=== PATIENT | female | born 1960 | race Caucasian/White ===

== ENCOUNTER 2020-05-09 15:32 | Emergency (ER) | payer BC ==
[~2020-05-09] VITALS: Ht 167.6 cm; Wt 111.1 kg
[2020-05-09 17:04] LABS: ABSOLUTE NEUTROPHILS 16.4 thou/uL (1.4-8.2); BASOPHILS 0.5 % (0.0-2.0); EOSINOPHILS 0.7 % (0.0-3.0); HEMATOCRIT 46.9 % (37.0-47.0); HEMOGLOBIN 16.2 gm/dL (12.0-15.0); LYMPHOCYTES 10.6 % (24.0-44.0); MCH 32.1 pg (26.0-34.0); MCHC 34.6 g/dL (28.0-37.0); MCV 92.9 fL (80.0-100.0); MONOCYTES 4.1 % (1.0-8.0); PLATELET COUNT 509 thou/uL (150-400); POLYS 84.1 % (36.0-66.0); RBC 5.05 mil/uL (4.20-5.00); RDW 13.6 % (10.5-14.5); WBC 19.6 thou/uL (4.0-11.0)
[2020-05-09 17:08] LABS: ANION GAP 11 mmol/L (7-16); BUN 18 mg/dL (7-18); CALCIUM 9.4 mg/dL (8.5-10.1); CHLORIDE 101 mmol/L (98-107); CO2 25 mmol/L (21-32); CREATININE 1.7 mg/dL (0.6-1.0); GLUCOSE 204 mg/dL (74-106); POTASSIUM 3.8 mmol/L (3.5-5.1); SODIUM 137 mmol/L (136-145)
[2020-05-09 17:25] LABS: ALBUMIN 3.9 g/dL (3.4-5.0); DIRECT BILIRUBIN < 0.1 mg/dL (<0.1-0.2); SGOT 20 U/L (15-37); SGPT 34 U/L (30-65); TOTAL BILIRUBIN 0.5 mg/dL (0.2-1.0); TOTAL PROTEIN 7.4 g/dL (6.4-8.2)
[2020-05-09 18:09] LABS: URINE BILIRUBIN NEGATIVE (Negative); URINE BLOOD TRACE (Negative); URINE CLARITY CLEAR; URINE COLOR YELLOW; URINE GLUCOSE-RANDOM* NEGATIVE (Negative); URINE KETONES NEGATIVE (Negative); URINE LEUKOCYTES-REFLEX NEGATIVE (Negative); URINE NITRITE-REFLEX NEGATIVE (Negative); URINE PROTEIN (DIPSTICK) TRACE (Negative); URINE SPECIFIC GRAVITY 1.025 (1.005-1.035); URINE UROBILINOGEN 0.2 E.U./dl (0.2-1.0)
[2020-05-09 21:10] VITALS: BP 122/74
--- NOTE | 2020-05-10 09:23 | EKG ---
[facility] [place] [address] ELECTROCARDIOGRAM REPORT Name: MARYANN SHELTON Room [id number] Admission: 05/09/20 Attend Phys: Discharge: 05/09/20 Date of : 64 Report #: [id number] THIS REPORT FOR: cc: Fernando Issa Damon DO Santiago, Patrick MD [facility] ~ THIS REPORT FOR: //name// [facility] ED Test Date: 2020-05-09 Test Time: 16:18:54 Pat Name: MARYANN SHELTON Department: Room: Gender: F [employer]iting Coordinator: Roosevelt DING : 1960 Requested By: Cindy Tanner Order Number: [id number] MD: Robert Wood Measurements Intervals [place] Rate: 84 P: 41 TN: 187 QRS: -27 QRSD: 85 T: 60 QT: 393 QTc: 465 Interpretive Statements Sinus rhythm Probable left atrial enlargement Borderline left axis deviation Abnormal R-wave progression, late transition No previous ECG available for comparison Electronically Signed On 05-10-2020 9:23:21 CDT by Robert Wood [email or web address] <ELECTRONICALLY SIGNED> By: Robert Wood MD, FACC 05/10/20 0923 1618 Robert Wood MD, FACC /EPI
== END 2020-05-09 21:10 | disposition home or self-care (01) ==
LOC: ER 15:32
PROVIDERS: Emergency Medicine
DX: R18.8 Other ascites (principal); E87.2 Acidosis